=== PATIENT | male | born 1935 | race Caucasian/White ===

== ENCOUNTER 2018-01-07 11:05 | Inpatient (IN) | payer OTHER ==
[~2018-01-07] VITALS: Ht 177.8 cm; Wt 81.6 kg
[~2018-01-07 11:05] MED LIST: ATROVENT 00.5 MG/2.5 IH; LEVAQUIN750 MG PO; MEDROLPACK PO; PROVENTIL3 ML/2.5 M IH; SYMBICORT 16010.2 GM; THEOPHYLLINE400 MG; TUSSIONEX PENNKI5 ML PO
== END 2018-01-14 16:18 | disposition home or self-care (01) | DRG 194 ==
LOC: ER 11:05 → SEC-K 16:42 → MEDI 16:42
PROC: 3E0F7GC Introduction of Other Therapeutic Substance into Respiratory Tract, Via Natural or Artificial Opening (ICD-10-PCS; principal; 2018-01-07)
PROC: 4A033R1 Measurement of Arterial Saturation, Peripheral, Percutaneous Approach (ICD-10-PCS; 2018-01-07)
PROC: 4A12X4Z Monitoring of Cardiac Electrical Activity, External Approach (ICD-10-PCS; 2018-01-07)
DX: J18.9 Pneumonia, unspecified organism (principal); J44.1 Chronic obstructive pulmonary disease with (acute) exacerbation; E87.3 Alkalosis; J44.0 Chronic obstructive pulmonary disease with (acute) lower respiratory infection; I10 Essential (primary) hypertension; R09.02 Hypoxemia; E03.8 Other specified hypothyroidism; I25.10 Atherosclerotic heart disease of native coronary artery without angina pectoris; J20.9 Acute bronchitis, unspecified; Z87.891 Personal history of nicotine dependence

== ENCOUNTER 2018-07-28 07:17 | Emergency (ER) | payer OTHER ==
[~2018-07-28] VITALS: Ht 175.3 cm; Wt 81.2 kg
[2018-07-28] MEDS ORDERED: SYNTHROID50 MCG (07:29)
== END 2018-07-28 11:18 | disposition home or self-care (01) ==
LOC: ER 07:17
DX: J43.8 Other emphysema (principal); J40 Bronchitis, not specified as acute or chronic; T88.1XXS Other complications following immunization, not elsewhere classified, sequela

== ENCOUNTER 2019-02-17 12:20 | Emergency (ER) | payer OTHER ==
[~2019-02-17] VITALS: Ht 177.8 cm; Wt 81.6 kg
[~2019-02-17 12:20] MED LIST changes: +SYNTHROID50 MCG
[2019-02-17] MEDS ORDERED: SYMBICORT 16010.2 GM (12:32)
[2019-02-17] MEDS ORDERED: SPIRIVA RESPIMAT4 G1 (12:32)
[2019-02-17] MEDS ORDERED: PNEU16DI2 (12:32)
[2019-02-17] MEDS ORDERED: THEOPHYLLINE A200 M1 (12:34)
== END 2019-02-17 18:44 | disposition home or self-care (01) ==
LOC: ER 12:20
DX: J44.9 Chronic obstructive pulmonary disease, unspecified (principal); J11.1 Influenza due to unidentified influenza virus with other respiratory manifestations

== ENCOUNTER 2021-03-07 10:58 | Emergency (ER) | payer OTHER ==
[~2021-03-07] VITALS: Ht 175.3 cm; Wt 79.8 kg
[~2021-03-07 10:58] MED LIST changes: +PNEU16DI2; +SPIRIVA RESPIMAT4 G1; +THEOPHYLLINE A200 M1
== END 2021-03-07 17:06 | disposition home or self-care (01) ==
LOC: ER 10:58
DX: J44.1 Chronic obstructive pulmonary disease with (acute) exacerbation (principal); J22 Unspecified acute lower respiratory infection; B34.9 Viral infection, unspecified; Z03.818 Encounter for observation for suspected exposure to other biological agents ruled out

== ENCOUNTER 2022-04-11 13:32 | Emergency (ER) | payer OTHER ==
[~2022-04-11] VITALS: Ht 175.3 cm; Wt 78.5 kg
[2022-04-11] MEDS ORDERED: AMLODIPINE BESYL5 MG PO (14:08)
== END 2022-04-11 16:05 | disposition home or self-care (01) ==
LOC: ER 13:32
DX: S61.421A Laceration with foreign body of right hand, initial encounter (principal); W45.8XXA Other foreign body or object entering through skin, initial encounter; Y93.9 Activity, unspecified; Y92.013 Bedroom of single-family (private) house as the place of occurrence of the external cause; E03.9 Hypothyroidism, unspecified; I10 Essential (primary) hypertension

== ENCOUNTER 2022-12-28 08:13 | Inpatient (IN) | payer OTHER ==
[~2022-12-28] VITALS: Ht 175.3 cm; Wt 77.1 kg
[~2022-12-28 08:13] MED LIST changes: +AMLODIPINE BESYL5 MG PO
[2023-01-01] MEDS ORDERED: LEVOFLOXACIN750 MG PO ×2 (09:34)
[2023-01-01] MEDS ORDERED: MEDROLPACK PO ×2 (09:34)
[2023-01-01] MEDS ORDERED: INTESTINEX680 M1 PO ×2 (09:34)
[2023-01-01] MEDS ORDERED: PEPCID AC20 MG PO ×2 (09:35)
== END 2023-01-01 14:06 | disposition home or self-care (01) | DRG 194 ==
LOC: ER 08:13 → MEDI 21:22 → SEC-K 21:22 → MEDI 12-29 01:10
PROVIDERS: ADMIT Internal Medicine; ATTEND Internal Medicine
PROC: BB24Y0Z Computerized Tomography (CT Scan) of Bilateral Lungs using Other Contrast, Unenhanced and Enhanced (ICD-10-PCS; principal; 2022-12-28)
PROC: 4A12X4Z Monitoring of Cardiac Electrical Activity, External Approach (ICD-10-PCS; 2022-12-28)
PROC: 3E0F7GC Introduction of Other Therapeutic Substance into Respiratory Tract, Via Natural or Artificial Opening (ICD-10-PCS; 2022-12-28)
PROC: B020ZZZ Computerized Tomography (CT Scan) of Brain (ICD-10-PCS; 2022-12-29)
PROC: 0HQ1XZZ Repair Face Skin, External Approach (ICD-10-PCS; 2022-12-30)
DX: J18.1 Lobar pneumonia, unspecified organism (principal); J44.1 Chronic obstructive pulmonary disease with (acute) exacerbation; S01.81XA Laceration without foreign body of other part of head, initial encounter; S61.412A Laceration without foreign body of left hand, initial encounter; F17.200 Nicotine dependence, unspecified, uncomplicated; I25.10 Atherosclerotic heart disease of native coronary artery without angina pectoris; I10 Essential (primary) hypertension; E03.8 Other specified hypothyroidism; D72.829 Elevated white blood cell count, unspecified; Z20.822 Contact with and (suspected) exposure to COVID-19; W01.119A Fall on same level from slipping, tripping and stumbling with subsequent striking against unspecified sharp object, initial encounter; Y93.01 Activity, walking, marching and hiking; Y92.231 Patient bathroom in hospital as the place of occurrence of the external cause; Y99.9 Unspecified external cause status

== ENCOUNTER → 2023-01-02 11:52 | Outpatient (CLI) | payer OTHER ==
[~2023-01-02 11:52] MED LIST changes: +INTESTINEX680 M1 PO; +LEVOFLOXACIN750 MG PO; +PEPCID AC20 MG PO
== END | disposition home or self-care (01) ==
LOC: LAB 11:52
PROVIDERS: ATTEND Urology
DX: I11.9 Hypertensive heart disease without heart failure (principal); N30.00 Acute cystitis without hematuria

== ENCOUNTER 2023-02-18 18:49 | Emergency (ER) | payer OTHER ==
[~2023-02-18] VITALS: Ht 175.3 cm; Wt 76.2 kg
== END 2023-02-18 21:17 | disposition home or self-care (01) ==
LOC: ER 18:49
DX: S61.225A Laceration with foreign body of left ring finger without damage to nail, initial encounter (principal); W25.XXXA Contact with sharp glass, initial encounter; Y93.9 Activity, unspecified; Y92.9 Unspecified place or not applicable; J44.1 Chronic obstructive pulmonary disease with (acute) exacerbation; I10 Essential (primary) hypertension; N40.0 Benign prostatic hyperplasia without lower urinary tract symptoms

== ENCOUNTER 2023-03-01 09:20 | Emergency (ER) | payer OTHER ==
[~2023-03-01] VITALS: Ht 266.7 cm; Wt 74.4 kg
[2023-03-01] MEDS ORDERED: VISTARIL25 MG PO (10:36)
[2023-03-01] MEDS ORDERED: LACTULOSE10 GM PO (10:36)
== END 2023-03-01 11:04 | disposition home or self-care (01) ==
LOC: ER 09:20
DX: Z48.02 Encounter for removal of sutures (principal)

== ENCOUNTER 2023-05-05 17:59 | Emergency (ER) | payer OTHER ==
[~2023-05-05] VITALS: Ht 175.3 cm; Wt 75.3 kg
[~2023-05-05 17:59] MED LIST changes: +LACTULOSE10 GM PO; +VISTARIL25 MG PO
== END 2023-05-06 04:20 | disposition home or self-care (01) ==
LOC: ER 17:59
DX: J44.9 Chronic obstructive pulmonary disease, unspecified (principal); Z20.822 Contact with and (suspected) exposure to COVID-19

== ENCOUNTER 2023-09-12 16:12 | Emergency (ER) | payer OTHER ==
[~2023-09-12] VITALS: Ht 175.3 cm; Wt 73.0 kg
[2023-09-12] MEDS ORDERED: THEOPHYLLINE A400 MG PO (16:42)
[2023-09-12 17:21] LABS: HEMATOCRIT 37.6 % (39.0-48.0); HEMOGLOBIN 12.6 g/dL (13-16.00); MEAN CELL VOLUME 90.1 fL (80.0-100.00); MEAN CORPUSCULAR HEMOGLOBIN 30.1 pg (27.00-32.0); MEAN CORPUSCULAR HGB CONC 33.4 g/dl (32.0-36.0); PLATELET COUNT 272 K/uL (150-450); RED BLOOD COUNT 4.18 M/uL (4.00-6.00); RED CELL DISTRIBUTION WIDTH 13.7 % (11.5-14.5)
[2023-09-12 17:45] LABS: CALCIUM 9.3 mg/dL (8.5-10.1); CREATININE SERUM 1.09 mg/dL (0.70-1.30); GFR 64.14; POTASSIUM 3.56 mEq/L (3.5-5.1)
[2023-09-12 20:16] LABS: ABG PH 7.472 (7.35-7.45); ABG pCO2 38.4 mmHg (35-45)
[2023-09-12 20:17] LABS: BASE EXCESS 3.7 mmol/l; BICARBONATE 27.4 mmol/l (23-25); Tco2 28.6 mmol/l; allen test SATISFACTORY; o2 21 %; puncture site RADIAL RIGHT
[2023-09-12 20:18] LABS: SaO2 96.7 %
== END 2023-09-12 19:35 | disposition home or self-care (01) ==
LOC: ER 16:12
PROVIDERS: General Practice
DX: J44.1 Chronic obstructive pulmonary disease with (acute) exacerbation (principal)
CPT/HCPCS: 36415; 71046; 82803; 94640; 96365; 96366; 99284; J0696; J2930; J3490

== ENCOUNTER 2023-11-02 10:22 | Inpatient (IN) | payer OTHER ==
[~2023-11-02] VITALS: Ht 172.7 cm; Wt 68.0 kg
[~2023-11-02 10:22] MED LIST changes: +THEOPHYLLINE A400 MG PO
[2023-11-02 12:07] LABS: HEMATOCRIT 41.1 % (39.0-48.0); HEMOGLOBIN 13.7 g/dL (13-16.00); MEAN CELL VOLUME 89.4 fL (80.0-100.00); MEAN CORPUSCULAR HEMOGLOBIN 29.8 pg (27.00-32.0); MEAN CORPUSCULAR HGB CONC 33.3 g/dl (32.0-36.0); PLATELET COUNT 247 K/uL (150-450); RED CELL DISTRIBUTION WIDTH 14.3 % (11.5-14.5)
[2023-11-02 12:15] LABS: ABG pCO2 37.8 mmHg (35-45)
[2023-11-02 12:16] LABS: BASE EXCESS 2.6 mmol/l; BICARBONATE 26.3 mmol/l (23-25); SaO2 91.9 %; Tco2 27.5 mmol/l; allen test SATISFACTORY; o2 21 %; puncture site RADIAL RIGHT
[2023-11-02 12:18] LABS: ABG PO2 58.9 mmHg (80-100)
[2023-11-02 21:54] LABS: PH,URINE 5.5 (5.0-8.0); URINE APPEARANCE Clear; URINE BILIRRUBIN Negative (NEGATIVE); URINE BLOOD Negative; URINE COLOR Yellow; URINE GLUCOSE Negative (NEGATIVE); URINE LEUKOCYTE Negative; URINE NITRATE Negative; URINE PROTEIN Negative (NEGATIVE)
[2023-11-02 21:57] LABS: URINE BACTERIA 7.5 uL (0.0-1933); URINE EPITHELIAL CELLS 4.4 uL (0.0-38.8); URINE RBC 2.8 uL (0.0-20.8); URINE WBC 2.7 uL (0.0-23.2)
[2023-11-05 06:48] LABS: CALCIUM 8.5 mg/dL (8.5-10.1); CREATININE SERUM 1.01 mg/dL (0.70-1.30); GFR 70.04; MAGNESIUM 2.3 mg/dL (1.8-2.4); POTASSIUM 4.22 mEq/L (3.5-5.1)
[2023-11-05 06:59] LABS: HEMATOCRIT 36.3 % (39.0-48.0); HEMOGLOBIN 12.1 g/dL (13-16.00); MEAN CORPUSCULAR HGB CONC 33.4 g/dl (32.0-36.0); PLATELET COUNT 236 K/uL (150-450); RED BLOOD COUNT 4.03 M/uL (4.00-6.00); RED CELL DISTRIBUTION WIDTH 14.2 % (11.5-14.5)
[2023-11-06 12:34] LABS: HEMOGLOBIN 13.7 g/dL (13-16.00); MEAN CELL VOLUME 90.2 fL (80.0-100.00); MEAN CORPUSCULAR HEMOGLOBIN 30.1 pg (27.00-32.0); MEAN CORPUSCULAR HGB CONC 33.4 g/dl (32.0-36.0); PLATELET COUNT 246 K/uL (150-450); RED BLOOD COUNT 4.54 M/uL (4.00-6.00); RED CELL DISTRIBUTION WIDTH 14.5 % (11.5-14.5)
[2023-11-06] MEDS ORDERED: SYMBICORT 16010.2 GM IH (14:09)
[2023-11-06] MEDS ORDERED: IPRAT-ALBUT 0.5-3 ML IH (14:09)
[2023-11-06] MEDS ORDERED: INTESTINEX680 M2 PO (14:09)
[2023-11-06] MEDS ORDERED: MEDROLPACK PO (14:09)
[2023-11-06] MEDS ORDERED: DOXYCYCLINE HY100 MG PO (14:09)
== END 2023-11-06 14:24 | disposition home or self-care (01) | DRG 194 ==
LOC: ER 10:23 → MEDI 19:58
PROVIDERS: Emergency Medicine; General Practice; Internal Medicine Geriatric Medicine; ADMIT Internal Medicine; ATTEND Internal Medicine
PROC: BW24ZZZ Computerized Tomography (CT Scan) of Chest and Abdomen (ICD-10-PCS; principal; 2023-11-02)
DX: J18.9 Pneumonia, unspecified organism (principal); J44.1 Chronic obstructive pulmonary disease with (acute) exacerbation; I10 Essential (primary) hypertension; E03.9 Hypothyroidism, unspecified; F17.200 Nicotine dependence, unspecified, uncomplicated

== ENCOUNTER 2023-11-13 21:31 | Emergency (ER) | payer OTHER ==
[~2023-11-13] VITALS: Ht 175.3 cm; Wt 72.6 kg
[~2023-11-13 21:31] MED LIST changes: +DOXYCYCLINE HY100 MG PO; +INTESTINEX680 M2 PO; +IPRAT-ALBUT 0.5-3 ML IH; +SYMBICORT 16010.2 GM IH
[2023-11-13 22:14] LABS: HEMATOCRIT 40.5 % (39.0-48.0); HEMOGLOBIN 13.4 g/dL (13-16.00); MEAN CELL VOLUME 88.3 fL (80.0-100.00); MEAN CORPUSCULAR HEMOGLOBIN 29.2 pg (27.00-32.0); MEAN CORPUSCULAR HGB CONC 33.1 g/dl (32.0-36.0); PLATELET COUNT 229 K/uL (150-450); RED BLOOD COUNT 4.59 M/uL (4.00-6.00); RED CELL DISTRIBUTION WIDTH 14.5 % (11.5-14.5)
[2023-11-13 22:25] LABS: CALCIUM 8.5 mg/dL (8.5-10.1); GFR 70.85; POTASSIUM 3.92 mEq/L (3.5-5.1)
[2023-11-13 23:19] LABS: ABG PH 7.472 (7.35-7.45)
[2023-11-13 23:20] LABS: ABG PO2 102.5 mmHg (80-100); ABG pCO2 41.7 mmHg (35-45); BASE EXCESS 5.6 mmol/l; BICARBONATE 29.8 mmol/l (23-25); Tco2 31.1 mmol/l; allen test SATISFACTORY; o2 35 %; puncture site RADIAL LEFT
[2023-11-13 23:22] LABS: SaO2 98.4 %
[2023-11-14] MEDS ORDERED: OSEL75CA PO (02:05)
== END 2023-11-14 02:10 ==
LOC: ER 21:32
PROVIDERS: Emergency Medicine
DX: J10.1 Influenza due to other identified influenza virus with other respiratory manifestations (principal); J44.1 Chronic obstructive pulmonary disease with (acute) exacerbation; I10 Essential (primary) hypertension; E03.9 Hypothyroidism, unspecified; Z20.822 Contact with and (suspected) exposure to COVID-19
CPT/HCPCS: 36415; 71045; 82803; 93005; 94640; 96365; 96366; 99284; J0456; J0744; J2920; J7030

== ENCOUNTER 2023-11-15 10:05 | Emergency (ER) | payer OTHER ==
[~2023-11-15] VITALS: Ht 175.3 cm; Wt 72.6 kg
[~2023-11-15 10:05] MED LIST changes: +OSEL75CA PO
== END 2023-11-15 14:27 | disposition home or self-care (01) ==
LOC: ER 10:06
DX: J10.1 Influenza due to other identified influenza virus with other respiratory manifestations (principal); R59.0 Localized enlarged lymph nodes; J44.9 Chronic obstructive pulmonary disease, unspecified
CPT/HCPCS: 96372; 99284; J1100

== ENCOUNTER 2023-12-18 09:13 | Emergency (ER) | payer OTHER ==
[~2023-12-18] VITALS: Ht 175.3 cm; Wt 72.6 kg
[2023-12-18 10:51] LABS: ALBUMIN 3.2 gm/dL (3.4-5.0); BILIRUBIN TOTAL 0.94 mg/dL (0.3-1.2); CALCIUM 8.4 mg/dL (8.5-10.1); CREATININE SERUM 0.86 mg/dL (0.70-1.30); GFR 84.32; GLOBULINA 2.8 G/DL (2.4-3.5); POTASSIUM 3.76 mEq/L (3.5-5.1)
[2023-12-18 10:52] LABS: ABG PH 7.463 (7.35-7.45); ABG PO2 65.9 mmHg (80-100); ABG pCO2 38.5 mmHg (35-45); BASE EXCESS 3.2 mmol/l; SaO2 94.1 %; Tco2 28.2 mmol/l
[2023-12-18 10:53] LABS: allen test SATISFACTORY; o2 21 %; puncture site RADIAL RIGHT
== END 2023-12-18 16:52 | disposition home or self-care (01) ==
LOC: ER
PROVIDERS: Emergency Medicine
DX: J44.1 Chronic obstructive pulmonary disease with (acute) exacerbation (principal); J40 Bronchitis, not specified as acute or chronic; F17.290 Nicotine dependence, other tobacco product, uncomplicated; R07.89 Other chest pain

== ENCOUNTER 2023-12-26 12:36 | Inpatient (IN) | payer OTHER ==
[~2023-12-26] VITALS: Ht 297.2 cm; Wt 70.8 kg
[2023-12-26 13:09] LABS: HEMATOCRIT 39.3 % (39.0-48.0); HEMOGLOBIN 13.4 g/dL (13-16.00); MEAN CELL VOLUME 89.6 fL (80.0-100.00); MEAN CORPUSCULAR HEMOGLOBIN 30.5 pg (27.00-32.0); PLATELET COUNT 334 K/uL (150-450); RED BLOOD COUNT 4.39 M/uL (4.00-6.00); RED CELL DISTRIBUTION WIDTH 13.8 % (11.5-14.5)
[2023-12-26 13:17] LABS: ABG PH 7.468 (7.35-7.45); ABG PO2 62.6 mmHg (80-100); ABG pCO2 35.8 mmHg (35-45); BICARBONATE 25.3 mmol/l (23-25); SaO2 93.3 %
[2023-12-26 13:18] LABS: Tco2 26.4 mmol/l
[2023-12-26 13:21] LABS: allen test SATISFACTORY; o2 21 %; puncture site RADIAL RIGHT
[2023-12-26 13:37] LABS: ALBUMIN 3.3 gm/dL (3.4-5.0); BILIRUBIN TOTAL 0.47 mg/dL (0.3-1.2); CALCIUM 9.4 mg/dL (8.5-10.1); CREATININE SERUM 0.8 mg/dL (0.70-1.30); GFR 91.66; GLOBULINA 3.7 G/DL (2.4-3.5); POTASSIUM 3.95 mEq/L (3.5-5.1)
[2023-12-26 18:28] LABS: PH,URINE 5.5 (5.0-8.0); URINE APPEARANCE Turbid; URINE BILIRRUBIN Negative (NEGATIVE); URINE BLOOD Negative; URINE COLOR Dark Yellow; URINE GLUCOSE Negative (NEGATIVE); URINE LEUKOCYTE Negative; URINE NITRATE Negative; URINE PROTEIN Negative (NEGATIVE); URINE UROBILINOGEN 0.2 E.U./dl
[2023-12-26 18:32] LABS: URINE EPITHELIAL CELLS 4.4 uL (0.0-38.8); URINE RBC 4.8 uL (0.0-20.8); URINE WBC 3.7 uL (0.0-23.2)
[2023-12-26 18:42] LABS: INR 1.02; PROTHROMBIN TIME 10.7 SECONDS (9.0-11.5)
[2023-12-26 18:56] LABS: D DIMER 0.31 MG/L; PARTIAL THROMBOPLASTIN TIME 27.1 SECONDS (22.0-34.0)
[2023-12-28 10:40] LABS: ABG PH 7.401 (7.35-7.45); ABG PO2 77.6 mmHg (80-100); SaO2 95.3 %
[2023-12-28 10:41] LABS: BASE EXCESS -0.4 mmol/l; BICARBONATE 24.2 mmol/l (23-25); Tco2 25.5 mmol/l; allen test SATISFACTORY; o2 21 %; puncture site RADIAL LEFT
[2023-12-29] MEDS ORDERED: LEVOFLOXACIN750 MG PO (11:38)
== END 2023-12-29 12:58 | disposition home or self-care (01) | DRG 192 ==
LOC: ER → MEDI 18:10
PROVIDERS: General Practice; Internal Medicine; ADMIT Internal Medicine; ATTEND Internal Medicine
PROC: BW24ZZZ Computerized Tomography (CT Scan) of Chest and Abdomen (ICD-10-PCS; principal; 2023-12-26)
DX: J44.1 Chronic obstructive pulmonary disease with (acute) exacerbation (principal); J40 Bronchitis, not specified as acute or chronic; Z20.822 Contact with and (suspected) exposure to COVID-19; I10 Essential (primary) hypertension